=== PATIENT | female | born 1950 | race Caucasian/White ===

== ENCOUNTER 2019-05-21 19:46 | Emergency (ER) | payer OTHER ==
[~2019-05-21] VITALS: Ht 162.6 cm; Wt 77.1 kg
[~2019-05-21 19:46] MED LIST: ACETAMINOPHEN325 M1 PO; ALLERGY RELIEF25 M2 PO; ALPRAZOLAM ER1 MG PO; AMLODIPINE BESY10 MG PO; BENADRYL25 MG PO; BENGAY GREASELE57 GM; BISA-LAX5 MG PO; CIPRO500 MG PO; CLONAZEPAM 1 MG1 M1 PO; CLONAZEPAM PO; CLONIDINE PO; CLONIDINE0.1 PO; CLORPRES 0.1-11 EACH PO; COLACE 100 MG100 MG PO; COLACE100 MG PO; CONSTULOSE10 GM/152 PO; CORRECTOL5 M1 PO; DARVOCET-N 1001 EACH PO; DEPAKOTE ER500 MG PO; DIPHENHYDRAM50 MG/M2 IM; DULCOLAX5 MG PO; ENULOSE10 GM/15 M PO; GERI-LANTA LIQ355 ML PO; HALDOL PO; HALDOL5 MG/1 ML IM; HALOPERIDOL 2 MG2 M1 PO; HALOPERIDOL 5 MG5 MG PO; HALOPERIDOL5 MG/1 M1 IM; IBUPROFEN 600600 M1 PO; KEPPRA1000 MG PO; LEVOTHYROXIN0.125 M1 PO; LORAZEPAM I2 MG/1 M2 IM; METAMUCIL FIBE3.4 GM PO; METAMUCIL PAC1 UDPKT PO; METAMUCIL POWD288 GM PO; METAMUCIL0.52 GM; MILK OF MAGNESIA PO; MIRALAX255 GM PO; MOM PO; MYLANTA 12 OZ355 M1 PO; NORCO 5-325 TA1 EACH PO; NORVASC 5 MG TAB5 MG PO; OLANZAPINE10 MG PO; ONDANSETRON HCL4 M2 PO; ONDANSETRON HCL4 M3 PO; OXCARBAZEPINE300 M1 PO; OXCARBAZEPINE600 MG PO; REMERON 30 MG T30 M1 PO; REMERON15 MG PO; REMERON30 MG PO; SYNTHROID 0.10.1 M1 PO; SYNTHROID100 MCG PO; TRILEPTAL 300300 MG PO; TRILEPTAL600 MG PO; TYLENOL325 MG PO; UNICOMPLEX M TA1 TA1 PO; VICODIN 5-5001 EACH PO; XANAX 0.5 MG0.5 M1 PO; ZYPREXA 10 MG T10 MG PO; ZYPREXA2.5 MG PO; ZYPREXA20 MG PO
[2019-05-21] MEDS ORDERED: CLONIDINE0.1 PO (20:06)
[2019-05-21] MEDS ORDERED: HYDRALAZINE 2525 MG PO ×2 (20:06)
[2019-05-21] MEDS ORDERED: ONDANSETRON HCL4 M2 PO (20:07)
[2019-05-21] MEDS ORDERED: [UNRECOGNIZED DRUG - CODE] PO (20:07)
[2019-05-21] MEDS ORDERED: RISPERDAL2 MG PO (20:14)
[2019-05-21] MEDS ORDERED: NICOTINE TRANSD21 M1 (20:14)
[2019-05-21] MEDS ORDERED: SENNA8.6 MG PO (20:15)
[2019-05-21] MEDS ORDERED: XIFAXAN550 M1 PO (20:16)
[2019-05-21] MEDS ORDERED: HALOPERIDOL 5 MG5 MG PO (20:17)
[2019-05-21] MEDS ORDERED: CONSTULOSE10 GM/152 PO (20:17)
[2019-05-21] MEDS ORDERED: SYNTHROID100 MC1 PO (20:18)
[2019-05-21] MEDS ORDERED: KEPPRA1000 MG PO (20:18)
[2019-05-21] MEDS ORDERED: PRINIVIL20 MG PO (20:18)
[2019-05-21] MEDS ORDERED: MAGOX 400400 MG PO (20:19)
[2019-05-21] MEDS ORDERED: AMLODIPINE BESY10 MG PO (20:19)
[2019-05-21] MEDS ORDERED: DEPAKOTE 250MG250 M1 PO (20:20)
[2019-05-21] MEDS ORDERED: ASPIR 8181 MG PO (20:20)
[2019-05-21] MEDS ORDERED: DEPAKOTE500 MG PO (20:21)
[2019-05-21] MEDS ORDERED: COLACE100 MG PO (20:23)
[2019-05-21] MEDS ORDERED: LEXAPRO 10 MG T10 M1 PO (20:23)
[2019-05-21] MEDS ORDERED: FLONASE 0.05%50 MCG NASAL (20:24)
[2019-05-21 20:25] LABS: ABSOLUTE NEUTROPHILS 5.5 thou/uL (1.4-8.2); BASOPHILS 0.5 % (0.0-2.0); EOSINOPHILS 0.8 % (0.0-3.0); HEMATOCRIT 39.5 % (37.0-47.0); HEMOGLOBIN 13.3 gm/dL (12.0-15.0); LYMPHOCYTES 16.8 % (24.0-44.0); MCHC 33.7 g/dL (28.0-37.0); MCV 97.9 fL (80.0-100.0); MONOCYTES 8.6 % (1.0-8.0); PLATELET COUNT 184 thou/uL (150-400); POLYS 73.3 % (36.0-66.0); RBC 4.04 mil/uL (4.20-5.00); RDW 13.3 % (10.5-14.5); WBC 7.5 thou/uL (4.0-11.0)
[2019-05-21 20:34] LABS: CALCIUM 9.8 mg/dL (8.5-10.1); CREATININE 1.2 mg/dL (0.6-1.0); POTASSIUM 3.4 mmol/L (3.5-5.1)
[2019-05-21 21:03] LABS: URINE BILIRUBIN NEGATIVE (Negative); URINE BLOOD NEGATIVE (Negative); URINE CLARITY CLEAR; URINE COLOR YELLOW; URINE GLUCOSE-RANDOM* NEGATIVE (Negative); URINE KETONES NEGATIVE (Negative); URINE NITRITE-REFLEX NEGATIVE (Negative); URINE PROTEIN (DIPSTICK) NEGATIVE (Negative); URINE UROBILINOGEN 0.2 E.U./dl (0.2-1.0)
[2019-05-21 21:04] LABS: URINE LEUKOCYTES-REFLEX 1+ (Negative)
[2019-05-21 21:11] LABS: CASTS None Seen /LPF (None Seen); MUCUS 0-3 Light strn/LPF (None Seen); RENAL EPITHELIAL CELLS 0-3 Few /LPF (None Seen); SQUAMOUS 0-3 Few /LPF (0-3); TRANSITIONAL EPITHEL CELL 4-10 Moderate /LPF (None Seen); URINE RBC 0-2 Rare /HPF (0-2); URINE WBC-REFLEX 6-15 Few /HPF (0-5)
[2019-05-21 21:12] LABS: BACTERIA-REFLEX None Seen /HPF (None Seen); CRYSTALS None Seen /LPF (None Seen)
[2019-05-21] MEDS ORDERED: CEFDINIR300 MG PO (21:30)
[2019-05-21 22:21] VITALS: BP 150/98
[2019-05-24] MEDS ORDERED: METAMUCIL PACK3.4 GM PO (17:51)
== END 2019-05-21 22:22 | disposition home or self-care (01) ==
LOC: ER 19:46
PROVIDERS: Emergency Medicine
DX: S00.83XA Contusion of other part of head, initial encounter (principal); N39.0 Urinary tract infection, site not specified; R56.9 Unspecified convulsions; E03.9 Hypothyroidism, unspecified; I12.9 Hypertensive chronic kidney disease with stage 1 through stage 4 chronic kidney disease, or unspecified chronic kidney disease; N18.3 Chronic kidney disease, stage 3 (moderate); F31.9 Bipolar disorder, unspecified; F17.210 Nicotine dependence, cigarettes, uncomplicated; Z88.8 Allergy status to other drugs, medicaments and biological substances; Z91.011 Allergy to milk products; Z88.0 Allergy status to penicillin; Z88.2 Allergy status to sulfonamides; Z88.1 Allergy status to other antibiotic agents; Z91.018 Allergy to other foods; W18.09XA Striking against other object with subsequent fall, initial encounter; Y93.89 Activity, other specified; Y92.89 Other specified places as the place of occurrence of the external cause; Y99.8 Other external cause status

== ENCOUNTER 2019-05-24 17:26 | Emergency (ER) | payer OTHER ==
[~2019-05-24] VITALS: Ht 162.6 cm; Wt 72.6 kg
--- NOTE | ~2019-05-24 | EMS ---
[facility] [address] [place] [address] EMS Patient Care Report Name: RAY GARCIA Room #: DEP GUERA Burns#: [id number] Admission: 05/24/19 Attend Phys: Discharge: 05/24/19 Date of : 50 Report #: [id number] THIS REPORT FOR: //name// Report Transmitted: 05/25/2019 07:14 EMS Care Summary [place], [place]/[facility] Incident [id number] @ 05/24/2019 16:53 Incident Location [address] [place] [address] 211 A Patient RAY GARCIA Female, 69 Years 1950 Patient Address [address] [place] [address] Patient History Epilepsy,Hypertension,Bipolar II Disorder,Depression,Anxiety,Hypothyroidism,Schizoaffective Disorder,Chronic Kidney Disease,Insomnia, Patient Allergies Penicillin allergy,[place] allergy,Niacin,Valium, Patient Medications Clonidine, Hydralazine, Ondansetron, Clonazepam, Levothyroxine, Risperidone, Lisinopril, Amlodipine, Aspirin, Acetaminophen, Ibuprofen, Haloperidol, Voltaren, Chief Complaint SEIZURE Disposition Transported No Lights/[place] Dispatch Reason Sick Person Transported To [facility] [address] [place] [address] EMS Patient Care Report Name: RAY GARCIA Room #: DEP GUERA Burns#: [id number] Admission: 05/24/19 Attend Phys: Discharge: 05/24/19 Date of : 50 Report #: [id number] PT FOUND SITTING IN CHAIR IN [facility] OF [facility]. P45 ON SCENE. STAFF ON SCENE STATE THAT PT WAS WALKING OUTSIDE AND HAS APPARENT SZ LIKE ACTIVITY. STAFF STATES THAT PT HAS SZ BUT NORMALLY IS NOT CONFUSED FOR LONG SHE HAS BEEN TODAY. STAFF STATES THAT PT HAS ALSO BEEN AGGRESSIVE W/ STAFF AND OTHER RESIDENTS, WHICH IS ABNORMAL FOR HER. ON EMS ARRIVAL PT IS ALERT BUT CONFUSED. PT ABLE TO STAND AND WALK W/O ASSIST. PT HAS NO VISIBLE TRAUMA. PT HAS NO COMPLAINTS OF PAIN, SOB, CP OR TRAUMA. NO CHANGES ENROUTE. Initial Vitals @17:06P: 98,R: 16,BP: 124/86,Pain: 0/10,GCS: 14,Glucose: 107,SpO2: 94,Revised Trauma: 12, Assessments @17:02MENTAL:Confused,Person Oriented,SKIN:No Abnormalities,HEENT:Head/Face: No Abnormalities,LUNG SOUNDS:General: No Abnormalities,ABDOMEN:General: No Abnormalities,PELVIS//GI:No Abnormalities,EXTREMITIES:PULSE:NEURO:Slurred Speech, Impression Seizures Procedures @17:02ALS AssessmentResponse: UnchangedSucceeded@17:04StretcherResponse: Unchanged Timeline 16:51,Call Received 16:51,Dispatch Notified 16:53,Dispatched 16:55,En Route 17:00,On Scene 17:02,At Patient 17:02,ALS Assessment,Response: UnchangedSucceeded, 17:04,Stretcher,Response: Unchanged 17:06,BP: 124/86 M,PULSE: 98,RR: 16 R,SPO2: 94 Ox,ETCO2: ,B,PAIN: 0,GCS: 14, 17:09,Depart Scene 17:20,At Destination 17:32,Call Closed Disclaimer v1.1 Copyright 2019 [employer] This EMS Care Summary contains data elements from the applicable legal record (which may be displayed differently). It is designed to provide pertinent information for the following purposes: continuity of care, clinical quality, and state data reporting. The complete legal record is available to ED staff [facility] [address] [place] [address] EMS Patient Care Report Name: RAY GARCIA Room #: DEP ER Katy#: [id number] Admission: 05/24/19 Attend Phys: Discharge: 05/24/19 Date of : 50 Report #: [id number] and administrators of the receiving hospital in [facility]'s Patient Tracker. All data is provided "as is."
[~2019-05-24 17:26] MED LIST changes: +ASPIR 8181 MG PO; +CEFDINIR300 MG PO; +DEPAKOTE 250MG250 M1 PO; +DEPAKOTE500 MG PO; +FLONASE 0.05%50 MCG NASAL; +HYDRALAZINE 2525 MG PO; +LEXAPRO 10 MG T10 M1 PO; +MAGOX 400400 MG PO; +NICOTINE TRANSD21 M1; +PRINIVIL20 MG PO; +RISPERDAL2 MG PO; +SENNA8.6 MG PO; +SYNTHROID100 MC1 PO; +XIFAXAN550 M1 PO; +[UNRECOGNIZED DRUG - CODE] PO
[2019-05-24] MEDS ORDERED: HYDROCHLOROTHIA25 M1 PO (17:48)
[2019-05-24] MEDS ORDERED: METAMUCIL PACK3.4 GM PO ×2 (17:51)
[2019-05-24 18:20] LABS: HEMATOCRIT 36.7 % (37.0-47.0); HEMOGLOBIN 12.8 gm/dL (12.0-15.0); MCH 33.7 pg (26.0-34.0); MCHC 34.8 g/dL (28.0-37.0); MCV 96.8 fL (80.0-100.0); PLATELET COUNT 167 thou/uL (150-400); RBC 3.79 mil/uL (4.20-5.00); RDW 13.4 % (10.5-14.5); WBC 6.1 thou/uL (4.0-11.0)
[2019-05-24 18:27] LABS: ANION GAP 6 mmol/L (7-16); BUN 25 mg/dL (7-18); CALCIUM 10.1 mg/dL (8.5-10.1); CHLORIDE 101 mmol/L (98-107); CO2 30 mmol/L (21-32); CREATININE 1.1 mg/dL (0.6-1.0); GLUCOSE 93 mg/dL (74-106); POTASSIUM 3.6 mmol/L (3.5-5.1); SODIUM 137 mmol/L (136-145)
[2019-05-24 18:36] LABS: TROPONIN-I <0.06 ng/mL (<0.06)
[2019-05-24 18:53] LABS: ABSOLUTE NEUTROPHILS 4.6 thou/uL (1.4-8.2)
[2019-05-24 19:43] LABS: URINE BILIRUBIN NEGATIVE (Negative); URINE BLOOD NEGATIVE (Negative); URINE CLARITY CLEAR; URINE COLOR YELLOW; URINE GLUCOSE-RANDOM* NEGATIVE (Negative); URINE KETONES NEGATIVE (Negative); URINE LEUKOCYTES NEGATIVE (Negative); URINE NITRITE NEGATIVE (Negative); URINE PROTEIN (DIPSTICK) NEGATIVE (Negative); URINE SPECIFIC GRAVITY <= 1.005 (1.005-1.035); URINE UROBILINOGEN 0.2 E.U./dl (0.2-1.0)
[2019-05-24 19:52] LABS: AMP/METHAMP Negative (Negative); BARBITURATES Negative (Negative); BENZODIAZEPINES Negative (Negative); COCAINE Negative (Negative); METHADONE Negative (Negative); OPIATES Negative (Negative); PCP Negative (Negative)
[2019-05-24 23:00] VITALS: BP 188/96
--- NOTE | 2019-05-26 17:56 | EKG ---
[place] [address] [place] [address] ELECTROCARDIOGRAM REPORT Name: RAY GARCIA Room #: DEP Katy#: [id number] Admission: 05/24/19 Attend Phys: Discharge: 05/24/19 Date of : 50 Report #: [id number] THIS REPORT FOR: //name// 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1950 Requested By: Benji Hart Order Number: [id number] MD: Chano Puente Measurements Intervals [place] Rate: 60 P: -31 TN: 168 QRS: -26 QRSD: 102 T: 23 QT: 442 QTc: 442 Interpretive Statements Sinus rhythm Poor R wave progression Compared to ECG 09/05/2014 09:50:40 Premature ventricular complexes are no longer present Electronically Signed On 05-26-2019 17:55:54 CDT by Chano Puente [email or web address] <ELECTRONICALLY SIGNED> By: Chano Puente MD, [facility] 05/26/19 1755 D: 08/1900 00 Chano Puente MD, FACC /EPI
== END 2019-05-24 23:01 | disposition home or self-care (01) ==
LOC: ER 17:26
PROVIDERS: Nurse Practitioner
DX: R41.82 Altered mental status, unspecified (principal); F17.210 Nicotine dependence, cigarettes, uncomplicated; E03.9 Hypothyroidism, unspecified; I12.9 Hypertensive chronic kidney disease with stage 1 through stage 4 chronic kidney disease, or unspecified chronic kidney disease; N18.3 Chronic kidney disease, stage 3 (moderate); F31.9 Bipolar disorder, unspecified; Z88.4 Allergy status to anesthetic agent; Z88.0 Allergy status to penicillin; Z88.2 Allergy status to sulfonamides

== ENCOUNTER 2019-05-25 07:47 | Emergency (ER) | payer OTHER ==
[~2019-05-25] VITALS: Ht 162.6 cm; Wt 62.6 kg
--- NOTE | ~2019-05-25 | EMS ---
[address] [address] EMS Patient Care Report Name: RAY GARCIA Room #: DEP GUERA Burns#: [id number] Admission: 05/25/19 Attend Phys: Discharge: 05/25/19 Date of : 50 Report #: [id number] THIS REPORT FOR: //name// Report Transmitted: 05/29/2019 08:53 EMS Care Summary [place], [place]/[facility] Incident [id number] @ 05/25/2019 07:12 Incident Location [address] [place] [address] Patient RAY GARCIA Female, 69 Years 1950 Patient Address [address] [place] [address] Patient History Epilepsy,Hypertension,Bipolar II Disorder,Depression,Anxiety,Hypothyroidism,Schizoaffective Disorder,Chronic Kidney Disease,Insomnia, Patient Allergies Penicillin allergy,[place] allergy,Niacin,Valium, Patient Medications Risperidone, Clonidine, Ondansetron, Lisinopril, Levothyroxine, Acetaminophen, Voltaren, Clonazepam, Haloperidol, Amlodipine, Ibuprofen, Aspirin, Hydralazine, Chief Complaint Seizure Disposition Transported No Lights/[place] Dispatch Reason Convulsions/Seizure Transported To [facility] Narrative 69 y/o female with seizures. [address] [address] EMS Patient Care Report Name: RAY GARCIA Room #: DEP ER Katy#: [id number] Admission: 05/25/19 Attend Phys: Discharge: 05/25/19 Date of : 50 Report #: [id number] On arrival found pt walking toward EMS with P45 and [place] staff on scene. Staff stated pt has a hx of seizures but hadn't had one in years until she fell and hit her head on Wednesday, now she has both absent seizures and full body convulsions. Staff stated that she had two seizures this morning at around 0700 lasting between one and five minutes each. Staff stated pt goes to [facility] for care. EMS monitored pt/VS/ECG en route to [facility] ED. Transferred care of pt to [facility] ED RN without incident. Initial Vitals @07:40P: 83,BP: 151/101,SpO2: 94, @07:30P: 113,R: 18,BP: 145/85,Pain: 0/10,GCS: 15,Glucose: 134,SpO2: 95,Revised Trauma: 12, Assessments @07:24MENTAL:No Abnormalities,SKIN:No Abnormalities,HEENT:Head/Face: No Abnormalities,Eyes: No Abnormalities,Neck/Airway: No Abnormalities,LUNG SOUNDS:General: No Abnormalities,Left Upper: No Abnormalities,Right Upper: No Abnormalities,Left Lower: No Abnormalities,Right Lower: No Abnormalities,ABDOMEN:General: No Abnormalities,Left Upper: No Abnormalities,Right Upper: No Abnormalities,Left Lower: No Abnormalities,Right Lower: No Abnormalities,PELVIS//GI:No Abnormalities,EXTREMITIES:Capillary Refill: Left Upper: < 2 Sec,Left Arm: No Abnormalities,Right Arm: No Abnormalities,Left Leg: No Abnormalities,Right Leg: No Abnormalities,PULSE:Radial: 2+ Normal,NEURO:Seizures, Impression Seizures Procedures @07:24ALS AssessmentResponse: UnchangedSucceeded@07:30Saline Lock 10cc (18 ga) Site: Antecubital-LeftResponse: UnchangedSucceeded Timeline 07:10,Call Received 07:10,Dispatch Notified 07:12,Dispatched 07:14,En Route 07:22,On Scene 07:24,At Patient 07:24,ALS Assessment,Response: UnchangedSucceeded, 07:30,Saline Lock 10cc 18 ga Site: Antecubital-Left,Response: UnchangedSucceeded, 07:30,BP: 145/85 M,PULSE: 113,RR: 18 R,SPO2: 95 Ox,ETCO2: ,B,PAIN: 0,GCS: 15, [address] [address] EMS Patient Care Report Name: RAY GARCIA Room #: DEP Katy#: [id number] Admission: 05/25/19 Attend Phys: Discharge: 05/25/19 Date of : 50 Report #: [id number] 07:33,Depart Scene 07:40,At Destination 07:40,BP: 151/101 M,PULSE: 83,RR: R,SPO2: 94 Ox,ETCO2: ,BG: ,PAIN: ,GCS: , 07:55,Call Closed Disclaimer v1.1 Copyright 2019 [employer] Inc This EMS Care Summary contains data elements from the applicable legal record (which may be displayed differently). It is designed to provide pertinent information for the following purposes: continuity of care, clinical quality, and state data reporting. The complete legal record is available to ED staff and administrators of the receiving hospital in [employer]'s Patient Tracker. All data is provided "as is."
[~2019-05-25 07:47] MED LIST changes: +HYDROCHLOROTHIA25 M1 PO; +METAMUCIL PACK3.4 GM PO
[2019-05-25 08:22] LABS: ABSOLUTE NEUTROPHILS 4.2 thou/uL (1.4-8.2); BASOPHILS 0.6 % (0.0-2.0); EOSINOPHILS 1.9 % (0.0-3.0); HEMATOCRIT 39.8 % (37.0-47.0); HEMOGLOBIN 13.6 gm/dL (12.0-15.0); LYMPHOCYTES 18.4 % (24.0-44.0); MCH 33.2 pg (26.0-34.0); MCHC 34.3 g/dL (28.0-37.0); MCV 96.9 fL (80.0-100.0); PLATELET COUNT 181 thou/uL (150-400); POLYS 67.1 % (36.0-66.0); RBC 4.11 mil/uL (4.20-5.00); RDW 13.4 % (10.5-14.5); WBC 6.2 thou/uL (4.0-11.0)
[2019-05-25 08:25] LABS: ANION GAP 11 mmol/L (7-16); BUN 21 mg/dL (7-18); CALCIUM 10.8 mg/dL (8.5-10.1); CHLORIDE 103 mmol/L (98-107); CO2 27 mmol/L (21-32); CREATININE 1.2 mg/dL (0.6-1.0); GLUCOSE 117 mg/dL (74-106); POTASSIUM 3.7 mmol/L (3.5-5.1); SODIUM 141 mmol/L (136-145)
[2019-05-25 08:34] LABS: TROPONIN-I <0.06 ng/mL (<0.06)
[2019-05-25 09:06] LABS: URINE BILIRUBIN NEGATIVE (Negative); URINE BLOOD TRACE (Negative); URINE CLARITY CLEAR; URINE COLOR YELLOW; URINE GLUCOSE-RANDOM* NEGATIVE (Negative); URINE KETONES NEGATIVE (Negative); URINE LEUKOCYTES-REFLEX TRACE (Negative); URINE NITRITE-REFLEX NEGATIVE (Negative); URINE PROTEIN (DIPSTICK) 1+ (Negative); URINE UROBILINOGEN 0.2 E.U./dl (0.2-1.0)
[2019-05-25 09:15] LABS: BACTERIA-REFLEX 1-9 Few /HPF (None Seen); CASTS None Seen /LPF (None Seen); SQUAMOUS 0-3 Few /LPF (0-3); URINE RBC 0-2 Rare /HPF (0-2); URINE WBC-REFLEX 0-5 Rare /HPF (0-5)
[2019-05-25 09:16] LABS: CRYSTALS None Seen /LPF (None Seen)
[2019-05-25 09:17] LABS: AMP/METHAMP Negative (Negative); BARBITURATES Negative (Negative); BENZODIAZEPINES Negative (Negative); COCAINE Negative (Negative); METHADONE Negative (Negative); OPIATES Negative (Negative); PCP Negative (Negative)
[2019-05-25 12:40] VITALS: BP 143/77
--- NOTE | 2019-05-26 18:05 | EKG ---
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1950 Requested By: Ross Topete Order Number: [id number] MD: Chano Puente Measurements Intervals [place] Rate: 57 P: -20 MO: 165 QRS: -29 QRSD: 92 T: 34 QT: 410 QTc: 400 Interpretive Statements Sinus arrhythmia left axis deviation Poor R wave progression Compared to ECG 09/05/2014 09:50:40 No significant change was found Electronically Signed On 05-26-2019 18:05:03 CDT by Chano Puente [email or web address] <ELECTRONICALLY SIGNED> By: Chano Puente MD, [facility] 05/26/19 1805 825 5 Chano Puente MD, FACC /EPI
== END 2019-05-25 12:40 ==
LOC: ER 07:47
PROVIDERS: Emergency Medicine
DX: R56.9 Unspecified convulsions (principal); I12.9 Hypertensive chronic kidney disease with stage 1 through stage 4 chronic kidney disease, or unspecified chronic kidney disease; N18.3 Chronic kidney disease, stage 3 (moderate); E03.9 Hypothyroidism, unspecified; F17.210 Nicotine dependence, cigarettes, uncomplicated; Z88.8 Allergy status to other drugs, medicaments and biological substances; Z88.1 Allergy status to other antibiotic agents; Z88.0 Allergy status to penicillin; Z88.2 Allergy status to sulfonamides; Z79.899 Other long term (current) drug therapy; Z79.82 Long term (current) use of aspirin

== ENCOUNTER 2019-08-28 11:12 | Inpatient (IN) | payer OTHER ==
[~2019-08-28] VITALS: Ht 162.6 cm; Wt 42.3 kg
[2019-08-28 11:13] VITALS: BP 105/65
--- NOTE | 2019-08-28 11:27 | NUR ---
PT RESIDENT AT [facility].
[2019-08-28] MEDS ORDERED: NORVASC10 MG PO (11:31)
[2019-08-28] MEDS ORDERED: ASA81BEC PO (11:31)
[2019-08-28] MEDS ORDERED: CLONAZEPAM 0.50.5 M1 PO (11:32)
[2019-08-28] MEDS ORDERED: DEPAKOTE250 MG PO (11:33)
[2019-08-28] MEDS ORDERED: FLONASE 0.05%50 MCG NASAL (11:34)
[2019-08-28] MEDS ORDERED: COLACE100 MG PO (11:34)
[2019-08-28] MEDS ORDERED: LEXAPRO5 MG PO (11:34)
[2019-08-28] MEDS ORDERED: HALOPERIDOL 5 MG5 MG PO ×2 (11:35)
[2019-08-28] MEDS ORDERED: HYDROCHLOROTHIA25 M2 PO (11:36)
[2019-08-28] MEDS ORDERED: LEVO-T100 MCG PO (11:37)
[2019-08-28] MEDS ORDERED: LACTULOSE20 GM/30 M PO (11:37)
[2019-08-28] MEDS ORDERED: KEPPRA1000 MG PO (11:37)
[2019-08-28] MEDS ORDERED: ZESTRIL20 MG PO (11:38)
[2019-08-28] MEDS ORDERED: MAGOX 400400 MG PO (11:38)
[2019-08-28] MEDS ORDERED: KONSYL6 GM PO (11:39)
[2019-08-28] MEDS ORDERED: ZYPREXA 10 MG T10 MG PO (11:39)
[2019-08-28] MEDS ORDERED: OXCARBAZEPINE600 MG PO (11:40)
[2019-08-28] MEDS ORDERED: RISPERDAL 1 MG T1 MG PO (11:42)
[2019-08-28] MEDS ORDERED: THEREMS-M1 EACH PO (11:43)
[2019-08-28] MEDS ORDERED: SENNA8.6 MG PO (11:43)
[2019-08-28] MEDS ORDERED: XIFAXAN550 M1 PO (11:44)
[2019-08-28] MEDS ORDERED: TYLENOL325 M1 PO (11:45)
[2019-08-28] MEDS ORDERED: MYLANTA MAXIMU355 ML PO (11:45)
[2019-08-28] MEDS ORDERED: LAXATIVE5 M1 PO (11:46)
[2019-08-28] MEDS ORDERED: HYDRALAZINE 2525 MG PO (11:47)
[2019-08-28] MEDS ORDERED: CATAPRES0.1 MG PO (11:47)
[2019-08-28] MEDS ORDERED: LORAZEPAM 2MG TA2 M1 PO (11:48)
[2019-08-28] MEDS ORDERED: ADVIL200 M1 PO (11:48)
[2019-08-28] MEDS ORDERED: ONDANSETRON HCL4 M2 PO (11:49)
[2019-08-28] MEDS ORDERED: VOLTAREN GEL 1100 G1 TOP (11:50)
[2019-08-28 13:53] LABS: HEMATOCRIT 31.3 % (37.0-47.0); HEMOGLOBIN 10.8 gm/dL (12.0-15.0); MCH 33.5 pg (26.0-34.0); MCHC 34.6 g/dL (28.0-37.0); MCV 96.9 fL (80.0-100.0); PLATELET COUNT 144 thou/uL (150-400); RBC 3.23 mil/uL (4.20-5.00); RDW 13.2 % (10.5-14.5); WBC 7.7 thou/uL (4.0-11.0)
[2019-08-28 13:53] LABS: URINE BILIRUBIN NEGATIVE (Negative); URINE BLOOD NEGATIVE (Negative); URINE CLARITY CLEAR; URINE COLOR YELLOW; URINE GLUCOSE-RANDOM* NEGATIVE (Negative); URINE KETONES NEGATIVE (Negative); URINE LEUKOCYTES-REFLEX NEGATIVE (Negative); URINE NITRITE-REFLEX NEGATIVE (Negative); URINE PROTEIN (DIPSTICK) NEGATIVE (Negative); URINE SPECIFIC GRAVITY <= 1.005 (1.005-1.035); URINE UROBILINOGEN 0.2 E.U./dl (0.2-1.0)
[2019-08-28 14:16] LABS: ALBUMIN 2.9 g/dL (3.4-5.0); ANION GAP 5 mmol/L (7-16); BUN 40 mg/dL (7-18); CALCIUM 9.7 mg/dL (8.5-10.1); CHLORIDE 86 mmol/L (98-107); CO2 34 mmol/L (21-32); CREATININE 1.2 mg/dL (0.6-1.0); GLUCOSE 84 mg/dL (74-106); MAGNESIUM 2.6 mg/dL (1.8-2.4); SGOT 27 U/L (15-37); SGPT 22 U/L (30-65); SODIUM 125 mmol/L (136-145); TOTAL BILIRUBIN 0.3 mg/dL (<0.1-1.0); TROPONIN-I <0.06 ng/mL (<0.06)
[2019-08-28 14:19] LABS: POTASSIUM 2.6 mmol/L (3.5-5.1)
[2019-08-28 14:30] LABS: ABSOLUTE NEUTROPHILS 5.7 thou/uL (1.4-8.2)
[2019-08-28 14:31] LABS: LARGE PLATELETS MANY
[2019-08-28 16:35] VITALS: BP 134/82
--- NOTE | 2019-08-28 16:50 | EKG ---
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 : 1950 Requested By: Bladimir Whipple Order Number: [id number] MD: Chano Puente Measurements Intervals [place] Rate: 55 P: -6 ND: 262 QRS: -23 QRSD: 107 T: 26 QT: 466 QTc: 446 Interpretive Statements Sinus rhythm Prolonged ND interval Poor R wave progression Compared to ECG 05/25/2019 08:26:18 First degree AV block now present Electronically Signed On 08-28-2019 16:50:27 HUMAN RESOURCES OFFICE MANAGER by Chano Puente [email or web address] <ELECTRONICALLY SIGNED> By: Chano Puente MD, [facility] 08/28/19 1650 141 141 Chano Puente MD, [facility] /EPI
[2019-08-28 18:57] LABS: ALBUMIN 3.1 g/dL (3.4-5.0); TOTAL PROTEIN 5.9 g/dL (6.4-8.2)
[2019-08-28 19:22] LABS: TSH 4.188 uIU/mL (0.358-3.740)
[2019-08-28 19:33] VITALS: BP 142/94
--- NOTE | 2019-08-28 19:55 | NUR ---
PT ADMITTED FROM [facility] FOR A REPORTED FALL LAST AND 2 FALLS TODAY..REPORTED BACK PAIN AND ALSO STATED THAT SHE DID NOT USE ANY ASSISTED DEVICES PRIOR TO ADMISSION..
[2019-08-29] VITALS (8 sets, daily range): BP systolic 89–180; BP diastolic 41–111
--- NOTE | 2019-08-29 03:57 | NUR ---
ASSUMED PT CARE AT 1900, VSS, PT A&0X4. MUFFLED SPEECH. TREMORS NOTED. PT STATED THAT SHE USUALLY GETS ONLY 1.0 MG OF HALDOL, SENIOR LIVING MED RECORDS RECHECKED BUT IT STATED THAT PT IS ON A 2.5MG DOSE OF HALDOL; UNSURE WHERE THE 1.0MG IS FROM. PT CAN GET UP WITH 1 ASSIST. SHE IS STILL CONSTIPATED NO BM THIS SHIFT. PT VOIDED OVER 2000ML THIS SHIFT. POTASSIUM REPLACED PER DEC. PT COMPLAINED OF PAIN THIS AM IN HER BACK, FENTANYL GIVEN AND PT SLEPT ALMOST IMMEDIATELY. PT IS SB TO SR ON THE MONITOR . PT IS STABLE, WILL CONTINUE TO MONITOR PER POC.
[2019-08-29 05:55] LABS: HEMOGLOBIN 11.7 gm/dL (12.0-15.0); MCH 33.3 pg (26.0-34.0); MCHC 33.6 g/dL (28.0-37.0); MCV 99.2 fL (80.0-100.0); RBC 3.52 mil/uL (4.20-5.00); WBC 5.2 thou/uL (4.0-11.0)
[2019-08-29 05:59] LABS: CALCIUM 9.7 mg/dL (8.5-10.1); CREATININE 0.9 mg/dL (0.6-1.0); MAGNESIUM 2.2 mg/dL (1.8-2.4)
--- NOTE | 2019-08-29 06:31 | NUR ---
POTASSIUM CAME BACK THIS AM WITH THE VALUE; 6.0. ANGEL DILLARD NOTIFIED. A REPEAT POTASSIUM WAS ORDERED. SHE ALSO ASKED THAT I STOP THE IV INFUSION OF NS WITH K. INFUSION WAS STOPPED AT 0628 THIS AM.
[2019-08-29 08:16] LABS: PROTIME 10.3 Seconds (9.3-11.4)
[2019-08-29] MEDS ORDERED: DIVALPROEX SOD250 M3 PO (09:40)
[2019-08-29] MEDS ORDERED: HALOPERIDOL 5 MG5 MG PO (09:43)
[2019-08-29] MEDS ORDERED: MILK OF MA2400 MG/11 PO (09:54)
[2019-08-29 11:44] LABS: CALCIUM 11.4 mg/dL (8.5-10.1)
[2019-08-29 11:46] LABS: POTASSIUM 5.4 mmol/L (3.5-5.1)
--- NOTE | 2019-08-29 12:59 | NUR ---
Nutrition: Pt assessed due to BMI trigger < 18.5. Low BMI likely false and in error as a result of likely inaccurate wt entry. Weighed 145# at admit time yesterday on 08/28/19 (BMI 24.9), with daily weight today of 98# (BMI 16.8). EMR shows UBW was 138# in 05/2019. RD visited pt. She does report "no real appetite" for ~1 week. Pt did not believe she was likely < 100# and after physical observation in bed, pt appears much heavier. Educated on goal to focus on protein foods/entrees first at meals for greatest nutrition impact and more kcal content. Offered to change future meals, but pt declined stating upcoming meals sounded OK. Pt unsure if hungry enough for lunch. RD obtained yogurt and crackers w/ PB in case of lower lunch intake. Currently struggling w/ constipation. Typically goes q3 days, now on day 4-5 without BM. Received bowel meds. RD also encouraged increased fiber, water intake. Keep as low nutrition risk given pt denial of added intervention needs. Follow po trends.
--- NOTE | 2019-08-29 13:41 | NUR ---
INITIAL ASSESSMENT: Received consult due to pt having frequent falls. Pt was admitted from [facility] due to falls and compression fx. Pt to have MRI today and most likely will have a kyphoplasty tomorrow. Pt with hx of bipolar/schizoaffective disorder. SW met with pt at bedside. Introduced role of SW. Pt is alert/orientated. Pt reports that she has lived at [facility] for 12 years. Pt is currently in the behavioral health unit. Pt states she is ambulatory and does not use any DME. Pt is aware that she may be having a procedure tomorrow. internet media planner to fax clinical info to [facility] for review. Plan is for pt to return to [facility] when medically stable. SW is following to assist as needed with discharge planning.
--- NOTE | 2019-08-29 13:54 | NUR ---
DISCHARGE PLANNING. PATIENT IS A SENIOR LIVING CARE RESIDENT AT [facility]. PLAN IS FOR PATIENT TO RETURN TO [facility] ONCE MEDICALLY READY. PATIENT TO HAVE KYPHOPLASTY PRIOR TO DISCHARGE. UPDATED CLINICAL INFORMATINO FAXED TO [facility]IA[facility]. CALL PLACED TO [facility] TO NOTIFY. FOLLOWING TO ASSIST.
--- NOTE | 2019-08-29 16:16 | NUR ---
Pt pleasant at this time. Up to bedside commode with 1x assisstance. Several bowel movements throughout day. Emesis this AM, decrease in nausea after interventions. Had MRI this afternoon. Had visitor in afternoon. Pt resting at this time.
--- NOTE | 2019-08-29 16:47 | EKG ---
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 : 1950 Requested By: Luis Diallo Order Number: [id number] MD: Chano Puente Measurements Intervals [place] Rate: 107 P: -3 [place]: 202 QRS: -19 QRSD: 111 T: 35 QT: 323 QTc: 431 Interpretive Statements Sinus tachycardia Poor R wave progression Compared to ECG 08/28/2019 14:12:44 Heart rate has increased Electronically Signed On 08-29-2019 16:47:41 FAST FOOD CASHIER by Chano Puente [email or web address] <ELECTRONICALLY SIGNED> By: Chano Puente MD, [facility] 08/29/19 1647 [phone] Chano Puente MD, [facility] /EPI
--- NOTE | 2019-08-29 18:11 | NUR ---
Assumed care approx. 0700 this AM. Pt hyperkalemia treated with kayexelate, regular insulin, and 1 amp of D50. Pt puked shortly after admin when down at MRI so pt was brought back to unit and MRI was completed later in the day; IV zofran given & Dr. Diallo notified. Orders given for [place]. Pt has had several soft BM's today. Potassium redraw at 1120 was 5.4. Normal saline at 100 mls/hr started. Blood pressure high this morning but came back down with morning meds. Blood thinners dc'd for kyphoplasty procedure tomorrow. Consent obtained from pts medical power of real estate attorney/ sister by this RN and JUMA Austin. Pt slowly progressing toward plan of care goals.
[2019-08-30] VITALS (12 sets, daily range): BP systolic 103–236; BP diastolic 71–193
[2019-08-30 05:50] LABS: HEMATOCRIT 30.7 % (37.0-47.0); HEMOGLOBIN 10.5 gm/dL (12.0-15.0); MCHC 34.4 g/dL (28.0-37.0); MCV 98.9 fL (80.0-100.0); RBC 3.1 mil/uL (4.20-5.00); RDW 13.5 % (10.5-14.5); WBC 4.7 thou/uL (4.0-11.0)
[2019-08-30 06:02] LABS: CREATININE 0.9 mg/dL (0.6-1.0); MAGNESIUM 1.7 mg/dL (1.8-2.4); POTASSIUM 4.5 mmol/L (3.5-5.1)
[2019-08-30 06:05] LABS: INR 1.1; PROTIME 11.2 Seconds (9.3-11.4)
[2019-08-30 06:14] LABS: CALCIUM 9.1 mg/dL (8.5-10.1)
--- NOTE | 2019-08-30 07:41 | NUR ---
paitnet is alert to slef. patient is anxious and confused at times. patient is pending procedure today. patient has been npo sense midnight. patient is on room air. patient refuses pain medication. patient often needs redirection. patient is resting comfortably in bed. wcm.
--- NOTE | 2019-08-30 12:23 | NUR ---
GIDEON reviewed chart and spoke with nursing and attending physician. Pt to have kyphoplasty today. Possible discharge back to [facility] tomorrow. assistant media planner to fax clinical info to [facility] for review. Pt may benefit from skilled level of care when she returns. GIDEON is following to assist as needed with discharge planning.
--- NOTE | 2019-08-30 19:33 | NUR ---
PT UP TO COMMODE WITH 1 ASSIST TODAY. HAD KYPHOPLASTY THIS MORNING. BANDAID WITH SHADOWING BUT NO FURTHER BLEEDING. PT PULLED OUT IV BY MISTAKE EARLIER. ORDER TO CONTINUE WITHOUT IV RECEIVED.
[2019-08-31 03:46] VITALS: BP 124/72
--- NOTE | 2019-08-31 03:48 | NUR ---
PATIENT IS ALERT AND ORIENTED. PATIENT IS SBA. PATIENT HAS NO IV. PATIENTS LBM WAS THE 20TH. PATIENT IS SBA TO BSC. PATIENT CAN BE IMPULSIVE AT TIMES. PATIENTS PAIN IS TREATED WITH PAIN MEDICATION. PATIENT IS RESTING COMFORTABLY IN BED. WCM. PENDING DISCHARGE BACK TO FACILITY.
[2019-08-31 05:42] LABS: HEMATOCRIT 30.1 % (37.0-47.0); HEMOGLOBIN 10.2 gm/dL (12.0-15.0); MCH 33.7 pg (26.0-34.0); MCHC 33.8 g/dL (28.0-37.0); MCV 99.7 fL (80.0-100.0); RBC 3.02 mil/uL (4.20-5.00); RDW 13.2 % (10.5-14.5); WBC 5.2 thou/uL (4.0-11.0)
[2019-08-31 06:15] LABS: CALCIUM 9.4 mg/dL (8.5-10.1); CREATININE 0.8 mg/dL (0.6-1.0); MAGNESIUM 1.5 mg/dL (1.8-2.4); POTASSIUM 4.6 mmol/L (3.5-5.1)
[2019-08-31 08:00] VITALS: BP 229/94
[2019-08-31 11:33] VITALS: BP 122/69
--- NOTE | 2019-08-31 12:22 | NUR ---
DISCHARGE NOTE: GIDEON reviewed chart and spoke with nursing and attending physician. Pt is medically stable for discharge back to [facility] today. Awaiting final discharge orders/summary. product planner to coordinate and notify family. SW is available to assist should needs arise.
[2019-08-31] MEDS ORDERED: OTHER MISCELL (12:59)
[2019-08-31] MEDS ORDERED: TRAMADOL 50 MG50 MG PO (13:01)
[2019-08-31 15:58] VITALS: BP 144/83
--- NOTE | 2019-08-31 17:56 | NUR ---
REPORT CALLED TO [facility] FACILITY TEAM PRIMARY CARE PHYSICIAN TIME WAS AT 1630 TO 1700 . SITING IN BED AWAITING ARIVAL FOR TEAM PRIMARY CARE PHYSICIAN. STAYS AT [facility] DISCHARGE PAPER WORK IS PRINTED OFF. ALERT AND ORIENTED X2. PERIODS OF CONFUSION. AND [facility]ENGHTHY PSYCH HISTORY. STAYS AT A INPATIENT FACILITY. PAIN MEDS GIVEN TODAY FOR BACK PAIN WITH RELIEF. SEE MAR FOR TIME OF ADMINISTRATION. WILL AWAIT ARIVAL OF TEAM PRIMARY CARE PHYSICIAN
== END 2019-08-31 18:42 | DRG 515 ==
LOC: ER 11:12 → EROBS 14:37 → 3W 14:37
PROVIDERS: Emergency Medicine; Nuclear Medicine Nuclear Cardiology; ADMIT Internal Medicine
PROC: 0QS03ZZ Reposition Lumbar Vertebra, Percutaneous Approach (ICD-10-PCS; principal; 2019-08-30)
PROC: 0QU03JZ Supplement Lumbar Vertebra with Synthetic Substitute, Percutaneous Approach (ICD-10-PCS; principal; 2019-08-30)
DX: S32.019A Unspecified fracture of first lumbar vertebra, initial encounter for closed fracture (principal); N17.0 Acute kidney failure with tubular necrosis; E87.1 Hypo-osmolality and hyponatremia; S32.029A Unspecified fracture of second lumbar vertebra, initial encounter for closed fracture; E87.6 Hypokalemia; E03.9 Hypothyroidism, unspecified; N18.3 Chronic kidney disease, stage 3 (moderate); K59.00 Constipation, unspecified; F32.9 Major depressive disorder, single episode, unspecified; E86.0 Dehydration; F17.210 Nicotine dependence, cigarettes, uncomplicated; G40.909 Epilepsy, unspecified, not intractable, without status epilepticus; F25.9 Schizoaffective disorder, unspecified; F41.9 Anxiety disorder, unspecified; M19.90 Unspecified osteoarthritis, unspecified site; Z60.2 Problems related to living alone; I12.9 Hypertensive chronic kidney disease with stage 1 through stage 4 chronic kidney disease, or unspecified chronic kidney disease; W18.39XA Other fall on same level, initial encounter; Y93.89 Activity, other specified; Y92.89 Other specified places as the place of occurrence of the external cause; Z88.1 Allergy status to other antibiotic agents; Z88.0 Allergy status to penicillin; Z88.2 Allergy status to sulfonamides; Z88.8 Allergy status to other drugs, medicaments and biological substances; Y99.8 Other external cause status
CPT/HCPCS: 10879

== ENCOUNTER 2020-03-27 17:33 | Emergency (ER) | payer OTHER ==
[~2020-03-27] VITALS: Ht 154.9 cm; Wt 55.3 kg
[~2020-03-27 17:33] MED LIST changes: +ADVIL200 M1 PO; +ALMACONE LIQUI355 ML PO; +ALTACE5 MG PO; +ASA81BEC PO; +ATIVAN2 MG PO; +BANOPHEN25 M1 PO; +CATAPRES0.1 MG PO; +CLONAZEPAM 0.50.5 M1 PO; +CLONIDINE HCL0.1 MG PO; +DEPAKOTE250 MG PO; +DIVALPROEX SOD250 M3 PO; +ESCITALOPRA5 MG/5 ML PO; +EXTRA STRENGTH85 GM TOP; +FELODIPINE 5 MG5 M1 PO; +HYDROCHLOROTHIA25 M2 PO; +KEPPRA XR500 MG PO; +KONSYL6 GM PO; +LACTULOSE10 GM/152 PO; +LACTULOSE20 GM/30 M PO; +LAXATIVE5 M1 PO; +LEVETIRACETAM500 M1 PO; +LEVO-T100 MCG PO; +LEXAPRO 10 MG T10 M2 PO; +LEXAPRO5 MG PO; +LINZESS72 MCG PO; +LISINOPRIL20 MG PO; +LORAZEPAM 2MG TA2 M1 PO; +MILK OF MA2400 MG/11 PO; +MYLANTA MAXIMU355 ML PO; +NAPROXEN250 MG PO; +NORVASC10 MG PO; +OLANZAPINE ODT5 MG PO; +OLANZAPINE15 MG PO; +OLANZAPINE5 M1 PO; +ONDANSETRON ODT4 MG PO; +OTHER MISCELL; +RISPERDAL 1 MG T1 MG PO; +RISPERDAL0.5 MG PO; +SYNTHROID112 MC1 PO; +THEREMS-M1 EACH PO; +TRAMADOL 50 MG50 MG PO; +TRAZODONE 150150 M1 PO; +TRAZODONE HCL50 MG PO; +TYLENOL325 M1 PO; +VOLTAREN GEL 1100 G1 TOP; +ZESTRIL20 MG PO; +ZOFRAN4 MG PO; +ZYPREXA 5 MG TAB5 M1 PO
[2020-03-27 17:45] VITALS: BP 176/110
== END 2020-03-27 19:13 | disposition home or self-care (01) ==
LOC: ER 17:33
DX: S52.532A Colles' fracture of left radius, initial encounter for closed fracture (principal); S52.612A Displaced fracture of left ulna styloid process, initial encounter for closed fracture; K21.9 Gastro-esophageal reflux disease without esophagitis; E03.9 Hypothyroidism, unspecified; I10 Essential (primary) hypertension; G40.909 Epilepsy, unspecified, not intractable, without status epilepticus; F20.9 Schizophrenia, unspecified; F17.210 Nicotine dependence, cigarettes, uncomplicated; Z85.828 Personal history of other malignant neoplasm of skin; Z79.899 Other long term (current) drug therapy; Z79.82 Long term (current) use of aspirin; Z88.8 Allergy status to other drugs, medicaments and biological substances; Z91.011 Allergy to milk products; Z91.040 Latex allergy status; Z88.0 Allergy status to penicillin; Z88.1 Allergy status to other antibiotic agents; W19.XXXA Unspecified fall, initial encounter; Y93.89 Activity, other specified; Y92.89 Other specified places as the place of occurrence of the external cause; Y99.8 Other external cause status

== ENCOUNTER 2020-03-29 18:37 | Inpatient (IN) | payer OTHER ==
[~2020-03-29] VITALS: Ht 157.5 cm; Wt 56.7 kg
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
[2020-03-29 18:39] VITALS: BP 180/113
[2020-03-29 19:15] LABS: ABSOLUTE NEUTROPHILS 4.6 thou/uL (1.4-8.2); BASOPHILS 0.7 % (0.0-2.0); EOSINOPHILS 2.3 % (0.0-3.0); HEMOGLOBIN 11.9 gm/dL (12.0-15.0); LYMPHOCYTES 22.4 % (24.0-44.0); MCV 99.9 fL (80.0-100.0); MONOCYTES 9.9 % (1.0-8.0); POLYS 64.7 % (36.0-66.0); RDW 14.9 % (10.5-14.5); WBC 7.1 thou/uL (4.0-11.0)
[2020-03-29 19:24] LABS: URINE BILIRUBIN NEGATIVE (Negative); URINE BLOOD NEGATIVE (Negative); URINE CLARITY CLEAR; URINE COLOR YELLOW; URINE GLUCOSE-RANDOM* NEGATIVE (Negative); URINE KETONES NEGATIVE (Negative); URINE LEUKOCYTES-REFLEX NEGATIVE (Negative); URINE NITRITE-REFLEX NEGATIVE (Negative); URINE PROTEIN (DIPSTICK) NEGATIVE (Negative); URINE UROBILINOGEN 0.2 E.U./dl (0.2-1.0)
[2020-03-29 19:31] LABS: CALCIUM 9.6 mg/dL (8.5-10.1); CREATININE 1.3 mg/dL (0.6-1.0); POTASSIUM 5.5 mmol/L (3.5-5.1)
[2020-03-29 19:33] LABS: AMP/METHAMP Negative (Negative); BARBITURATES Negative (Negative); BENZODIAZEPINES Negative (Negative); COCAINE Negative (Negative); METHADONE Negative (Negative); OPIATES Negative (Negative); PCP Negative (Negative)
[2020-03-29 19:38] LABS: ALBUMIN 3.7 g/dL (3.4-5.0); TOTAL BILIRUBIN 0.4 mg/dL (0.2-1.0); TOTAL PROTEIN 6.9 g/dL (6.4-8.2)
[2020-03-29 19:59] LABS: PLATELET COUNT 170 thou/uL (150-400)
[2020-03-29 21:44] VITALS: BP 180/113
--- NOTE | 2020-03-29 21:45 | NUR ---
Note entered late due to acuity on the unit. Patient admitted to the unit at 2145 on 03/29/20. Patient accompanied by ED staff and taken to room 517 via wheelchair. Patient presents as hypomanic, talking constantly with no real substance. Patient is unable to particpate in admission interview because of this. Information obtained from [facility] and previous admission. For the most part, patient was cooperative with being readmitted, and did not become combative as she had in previous admission. Patient ambulates to the restroom per self and does not appear to require any assistance at this point. Patient slept intermittently through the night and was compliant with AM meds.
--- NOTE | 2020-03-30 09:32 | NUR ---
0700 ASSUMED CARE OF PATIENT, PATIENT IN BED AWAKE AT THAT TIME. RECIEVED REPORT OF PATIENT 1:1, SITTER IN ROOM WITH PATIENT. TO BATHROOM WITH ASSIST X1, PT EMOTIONAL WHILE TALKING WITH FINISHED STOCK INSPECTOR. VS BP- 150/112 P-72 R-15 T-97.8 O2 SATS-98% PATIENT UPSET AND EMOTIONAL, WILL RECHECK BP AFTER BREAKFAST. PATIENT TO DYROOM FOR BREAKFAST WILL FINISHED STOCK INSPECTOR AT SIDE. PATIENT COMMUNICATING WITH PEERS WELL. PATIENT REFUSES SOME MEDICATIONS STATING "I WILL NOT TAKE CONTROLLED MEDICATIONS BECAUSE IT WILL HURT MY BABY. I AM AND WON'T DO THAT TO THE BABY". 1:1 DC'D PER MOLDER [employer]PETS SAWYER @8475. PATIENT GIVEN WALKER. PATIENT REFUSES TO WEAR YELLOW SHIRT, YELLOW FALL RISK BAND ON, YELLOW SOCKS ON, DUE TO NO AVAILABLE CHAIR ALARMS THERE IS NO CHAIR ALARM IN PLACE. WILL CONTINUE TO OBSERVE
--- NOTE | 2020-03-30 11:03 | NUR ---
PATIENT TAKEN TO ROOM [id number], HALDOL 5MG IM GIVEN TO RIGHT BUTTOCKS FOR INCREASED AGITATION. ASSITED WITH 3 STAFF FOR INJECTION. PATIENT CONTINUES TO TALK LOUD IN DAYROOM. STAFFING RECRUITER ASKED PATIENT TO LOWER VOICE. WILL CONTINUE TO OBSERVE.
--- NOTE | 2020-03-30 11:52 | EKG ---
[facility] [place] [address] [address] [place] [address] ELECTROCARDIOGRAM REPORT Name: RAY GARCIA Room #: 517-A DIS IN M.R.#: [id number] Admission: 03/29/20 Attend Phys: Payal Gomes MD Discharge: 04/03/20 Date of : 50 Report #: [id number] THIS REPORT FOR: cc: Ian Joshi Kevin E. DO Couchonnal, Luis F. MD ~ THIS REPORT FOR: //name// [facility] ED Test Date: 2020-03-29 Test Time: 19:21:53 Pat Name: RAY GARCIA Department: Room: [facility] Gender: F Flux Tube Attendant: taj : 1950 Requested By: Cheli Ferraro Order Number: [id number] MD: Leif Jaquez Measurements Intervals [place] Rate: 59 P: 5 HI: 185 QRS: -21 QRSD: 96 T: 15 QT: 426 QTc: 422 Interpretive Statements Sinus rhythm Borderline left axis deviation Anterior infarct, old No previous ECG available for comparison Electronically Signed On 03-30-2020 11:51:02 CDT by Leif Jaquez [email or web address] <ELECTRONICALLY SIGNED> By: Leif Jaquez MD 03/30/20 1151 20 20 Leif Jaquez MD /EPI
--- NOTE | 2020-03-30 17:36 | NUR ---
GIDEON spoke with, JUMA Sales, at [facility] concerning Pt's history and current behavioral concerns. JUMA Sales reported that Pt was combative, refusing medications and becoming difficult to work with. GIDEON asked if [facility] was willing to accept Pt bback at [facility]? Mónica, stated that are willing to accept the Pt back.
--- NOTE | 2020-03-30 23:19 | NUR ---
Pt was in her room at time of assessment. Pt was cooperative but seem irritable. Pt denies SI/HI, anxiety and or depression. Pt ambulates without a walker. Bed alarm on. Pt took all night meds whole. Pt came out to the day room around 2100. Pt now in bed sleeping. Will continue to monitor.
--- NOTE | 2020-03-31 11:00 | NUR ---
Assumed care 0700. Continues to talk forcefully loud. Will take only certain meds. refuses Clonazepam stating that it is a narcotic. When asked to be quiet continues talking. See eMAR for refusals list. Goes into the refigertor to get what she wants. Will not wait a couple of minutes for nurse to get her request. Says she remembers her pills yet wants to know what her pills are and what they are for.
--- NOTE | 2020-04-01 09:05 | NUR ---
GIDEON faxed updates for pt to Roberto at [phone]. GIDEON contacted [facility] at [phone]. No answer. GIDEON left [facility]. SW team will continue to follow pt during her stay on this unit.
[2020-04-01 09:32] VITALS: BP 116/75
--- NOTE | 2020-04-01 11:44 | NUR ---
1100 RESUMMED CARE FROM OVERNIGHT SHIFT THIS AM, PATIENT AWAKE IN ROOM WAITING FOR BREAKFAST. I HELPED PATIENT WITH HYGIENE THIS AM AND PATIENT ATE BREAKFAST TOOK MEDICATION WITHOUT INCIDENCE. PATIENT IS ORIENTED TIMES 4 ALERT TALKS LOUDLY WHEN SPEAKING TO STAFF AND PATIENTS. PATIENT DENIES SI/HI/AH/VH AT PRESENT. PATIENTS ABDOMEN SOFT ROUND BOWEL SOUNDS PRESENT LUNGS CLEAR. PATIENT WANTS TO LEAVE TO GO BACK TO FACILITY. PATIENT IS ON FALLS PROTOCOL AND REFUSES TO USE WALKER. PATIENT HYPERVERBAL AND ANXIOUS SOMETIMES NOT EASY TO REDIRECT. WILL CONTINUE TO MONITOR PATIENT FOR SAFETY AND BEHAVIORS.
--- NOTE | 2020-04-02 04:10 | NUR ---
04-01-19 CARE TRANSFERED AT 1915 OBSERVED PT IN [place]. 1940 PT AAOX2, PT PRESENTS COMBATIVE AND ANGRY, BUT COOPERATIVE DURING NURSING ASSESSMENT AND DENIED SI/SH/HI/VAH AND ZERO PAIN AT THIS TIME. ZERO ACUTE EMOTIONAL OR MEDICAL DISTRESS. WILL CONTINUE TO MONITOR PT PER [facility] PROTOCOL.
[2020-04-02 08:00] VITALS: BP 133/91
--- NOTE | 2020-04-02 08:34 | NUR ---
PT DID TAKE AM MEDS. PT REFUSING ANTIPSYCHOTIC MEDICATION, SAYS IT MAKES HER SLEEPY. PT DID TAKE MEDS WHOLE, WANTING TO KNOW WHAT EACH MED IS. PT DOES TALK LOUDLY AT TIMES. PT IS WALKING WITHOUT WALKER ALSO. PT HAS GAIT THAT IS SIDE TO SIDE SWAY. PT DOES LIKE TO DRINK COFFEE IN HER WATER PITCHER WITH ICE CREAM. PT DID TAKE CLONZIPAM.
[2020-04-02 11:35] VITALS: BP 133/91
--- NOTE | 2020-04-02 11:50 | NUR ---
PT DID TAKE ZYPREXIA WITH HELP FROM DR. REGGIE ADAMS TO GIVE IM FORM. PT STATED SHE WANTS A FULL ASPIRIN INSTEAD OF A BABY ASPIRIN. PT STATED HER STOMACH IS UPSET AND SHE DIDN'T WANT TO EAT LUNCH.
--- NOTE | 2020-04-02 12:00 | NUR ---
TALKED TO MRS. DOSS ABOUT GETTING IM BACK-UP FOR ZYPREXIA. SHE STATED YES ON THE PHONE. MRS. DOSS IS TALKING WITH RAY ON THE PHONE AT THIS TIME. PT TALKING ABOUT HER CHICKEN WAS RAW, WHICH IS TURKEY. PT STATED SHE DIDN'T PULL THE TRACH TUBE OUT OF A RESIDENT THAT IT WAS A PHARMACY BENEFITS COORDINATOR. ASKED PT ABOUT IF SHE TOLD THE FACILITY THAT SHE DIDN'T PULL IT, SHE SAID NO.
--- NOTE | 2020-04-02 12:19 | NUR ---
ADM MOM 10ML PO WITH PRUNE JUICE. PT STATED SHE DIDN'T HAVE A BM FOR A FEW DAYS, TOLD PT THAT THE REPORT SHEET SAID SHE HAD ONE YESTERDAY. PT SAID NO SHE DIDN'T. PT TALKING ABOUT NOT BEING PSYCHOTIC AND NOT WANTING TO GET A SHOT.
--- NOTE | 2020-04-02 15:18 | NUR ---
PT WANTING SOME MEDICATION FOR CONSTIPATION. PT STATED SHE IS NAUEATED AND NOT BELIEVING THIS NURSE THAT SHE HAD THE MOM IN PRUNE JUICE, PT STATED SHE DIDN'T TASTE THE MOM IN PRUNE JUICE.
--- NOTE | 2020-04-02 15:19 | NUR ---
ADM MAALOXX FOR STOMACH IRRITATION.
--- NOTE | 2020-04-02 17:03 | NUR ---
PT UPSET ABOUT WANTING LACTULOSE AND SHE IS UPSET ABOUT THE SALAD FOR DINNER. PT DIDN'T WANT CYMRAES CHEESE ON SALAD, PT REFUSING TURKEY SANDWICH.
--- NOTE | 2020-04-02 18:25 | NUR ---
GAVE PT A FULL ASPIRIN AT THIS TIME 325MG. PT WANTING TO KNOW WHAT SHE TAKES TONIGHT, PT WANTING METAMUCIL FOR CONSTIPATION. PT WILL START TONIGHT.
[2020-04-02 19:36] VITALS: BP 149/81
--- NOTE | 2020-04-02 21:59 | NUR ---
Care assumed of patient at 1915: Patient calm, pleasant and cooperative. Alert and oriented to person and place. Confused and forgetful on current time and situation. Ambulates with slouched posture. Refused to use assistive devices this shift. Patient speaks with raspy voice, spontaneous, rambling. Denies pain and discomfort. Denies SI/HI/AH/VH. Denies anxiety and depression. Took HS medication whole without difficulty. Ate 100% HS snack. Interacted well with staff. No delusional or paranoia behaviors observed. Denied any concerns or goals at this time. Patient asking appropriate questions regarding medication and current situation. Patient was able to retire to bed at a reasonable hour and is resting quietly at this time.
[2020-04-03 08:00] VITALS: BP 130/70
--- NOTE | 2020-04-03 08:17 | NUR ---
PT WANTING TO DISCHARGE TODAY. PT DENIES ANY PAIN. PT STILL WANTING TO HAVE METAMUCIL AND STATED IT DIDN'T WORK. PT LUNGS CLEAR. ABD IS ROUND WITH ABD SOUNDS. PT UP WALKING WITH LIMP. PT HAS LEFT ARM IN SOFT CAST. PT ORIENTED TO SELF AND PLACE AND SITUATION. PT TOOK MEDS THIS AM WITHOUT ANY ISSUES.
[2020-04-03] MEDS ORDERED: CATAPRES0.1 MG PO (09:12)
[2020-04-03] MEDS ORDERED: BENAZEPRIL HCL20 MG PO (09:14)
[2020-04-03] MEDS ORDERED: ASPIRIN325 PO (09:14)
[2020-04-03] MEDS ORDERED: CLONAZEPAM 0.50.5 M1 PO (09:15)
[2020-04-03] MEDS ORDERED: NAPROXEN250 MG PO (09:15)
[2020-04-03 09:17] VITALS: BP 130/70
[2020-04-03] MEDS ORDERED: METAMUCIL FIBE3.4 GM PO (09:21)
[2020-04-03] MEDS ORDERED: HOME MEDICATION PO (09:21)
--- NOTE | 2020-04-03 10:44 | NUR ---
GIDEON received a call from [facility] stating that they can take pt back today. She also said it is now documented at their facility that they must get prior approval from their DON before sending this pt to the hospital. After tx team GIDEON contacted [facility] who said that she will contact their transportation person to transport pt and call SW back with a time. GIDEON team will continue to follow pt during her stay on this unit.
--- NOTE | 2020-04-03 12:07 | NUR ---
PT GOING TO DISCHARGE TODAY. PT REFUSED TO FILL OUT SURVEY FORM.
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
== END 2020-04-03 12:30 | DRG 884 ==
LOC: ER 18:37 → SBH 21:00 → EROBS 21:00 → SBH 21:00
PROVIDERS: Emergency Medicine; ADMIT Psychiatry & Neurology Psychiatry; ATTEND Psychiatry & Neurology Psychiatry
DX: F01.51 Vascular dementia, unspecified severity, with behavioral disturbance (principal); N18.9 Chronic kidney disease, unspecified; F02.81 Dementia in other diseases classified elsewhere, unspecified severity, with behavioral disturbance; G30.9 Alzheimer's disease, unspecified; F25.0 Schizoaffective disorder, bipolar type; K21.9 Gastro-esophageal reflux disease without esophagitis; G47.00 Insomnia, unspecified; E03.9 Hypothyroidism, unspecified; G89.29 Other chronic pain; I12.9 Hypertensive chronic kidney disease with stage 1 through stage 4 chronic kidney disease, or unspecified chronic kidney disease; G40.909 Epilepsy, unspecified, not intractable, without status epilepticus; E87.5 Hyperkalemia; M19.90 Unspecified osteoarthritis, unspecified site; Z91.14 Patient's other noncompliance with medication regimen; Z79.82 Long term (current) use of aspirin; Z79.899 Other long term (current) drug therapy; Z88.0 Allergy status to penicillin; Z88.8 Allergy status to other drugs, medicaments and biological substances; Z88.1 Allergy status to other antibiotic agents; Z91.040 Latex allergy status
CPT/HCPCS: 10880